=== PATIENT | female | born 1985 | race Hispanic/Latino ===

== ENCOUNTER → 2024-12-04 | Outpatient (CLI) | payer OTHER ==
--- NOTE | 2024-12-04 22:47 | HMCIMG ---
LUMBAR SPINE 2-3VWS HISTORY: Low back pain COMPARISON: None FINDINGS: 3 images of lumbar spine were obtained. There is straightening of normal lordotic curvature which may be related to muscle spasm or positioning. No loss of vertebral height is seen. No fracture or dislocation is seen. IMPRESSION: 1. No fracture is seen.
--- NOTE | 2024-12-04 22:48 | HMCIMG ---
CERV SPINE 6 OR MORE VWS REASON: CERVICALGIA, LOW BACK PAIN. COMPARISON: None TECHNIQUE: 5 images of cervical spine were obtained including the oblique views. FINDINGS: No evidence of fracture or dislocation is seen. No loss of vertebral height is seen. IMPRESSION: No fracture is seen.
== END | disposition home or self-care (01) ==
LOC: RAH 16:12
PROVIDERS: ATTEND Radiology Diagnostic Radiology
DX: M54.2 Cervicalgia (principal); M54.50 Low back pain, unspecified
CPT/HCPCS: 72052; 72100